=== PATIENT | male | born 1965 | race Caucasian/White ===

== ENCOUNTER 2017-06-12 04:42 | Emergency (ER) | payer OTHER ==
--- NOTE | 2017-06-12 07:19 | EDM.PDOC ---
ED HPI GENERAL MEDICAL PROBLEM - General Chief Complaint: Head Injury Stated Complaint: FALL AND HIT HIS HEAD Time Seen by Provider: 06/12/17 04:42 Source of Information: Reports: Patient History Limitations: Reports: No Limitations - History of Present Illness INITIAL COMMENTS - FREE TEXT/NARRATIVE: c/o syncope pt want to bathroom in middle of night, voided, turned to walk back to bed and fell, struck head on cabinet, has pain in neck and head heard him fall and called his name, he did not respond, she came to his side and he became alert in 30 seconds no prodrome, no lighthead, no dizzy does drink 2 cups of coffee daily and about 60 oz of H2O 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 Denies: Fever, Chills, Malaise, Weakness , Fatigue, Night Sweats HEENT: Reports: No Symptoms Respiratory: Reports: No Symptoms Cardiovascular: Reports: No Symptoms Endocrine: Reports: No Symptoms GI/Abdominal: Reports: No Symptoms : Reports: No Symptoms Musculoskeletal: Reports: No Symptoms Skin: Reports: No Symptoms Neurological: Reports: Headache, Syncope. Denies: Seizure, Tremors, Difficulty Walking, Weakness, Change in Speech, Gait Disturbance Psychiatric: Reports: No Symptoms Hematologic/Lymphatic: Reports: No Symptoms Immunologic: Reports: No Symptoms ED EXAM, HEAD INJURY - Physical Exam Exam: See Below Exam Limited By: No Limitations General Appearance: Alert, WD/WN, No Apparent Distress Head: Other (R occiput) Course - Vital Signs Last Recorded V/S: Last Vital Signs Temp 36.7 C 06/12/17 04:50 Pulse 71 06/12/17 04:50 Resp 16 06/12/17 04:50 BP 130/85 06/12/17 04:50 Pulse Ox 100 06/12/17 04:50 - Orders/Labs/Meds Orders: Active Orders 24 hr Category Date Time Status EKG Documentation Completion [RC] ASDIRECTED Care 06/12/17 05:22 Active Cervical Spine wo Cont [CT] Stat Exams 06/12/17 05:15 Taken Head wo Cont [CT] Stat Exams 06/12/17 05:15 Taken EKG 12 Lead [EK] Routine Ther 06/12/17 05:22 Ordered Labs: Laboratory Tests 06/12/17 06/12/17 06/12/17 Range/Units 05:30 05:40 05:40 WBC 5.0 (4.5-12.0) X10-3/uL RBC 5.26 (4.30-5.75) x10(6)uL Hgb 16.1 H (11.5-15.5) g/dL Hct 47.3 (30.0-51.3) % MCV 90.0 (80-96) fL MCH 30.6 (27.7-33.6) pg MCHC 34.0 (32.2-35.4) g/dL RDW 11.8 (11.5-15.5) % Plt Count 156 (125-369) X10(3)uL MPV 11.1 H (7.4-10.4) fL Neut % (Auto) 71.4 (46-82) % Lymph % (Auto) 17.8 (13-37) % [place] % (Auto) 8.6 (4-12) % Eos % (Auto) 2 (1.0-5.0) % Baso % (Auto) 0 (0-2) % Neut # (Auto) 3.6 (1.6-8.3) # Lymph # (Auto) 0.9 (0.6-5.0) # [place] # (Auto) 0.4 (0.0-1.3) # Eos # (Auto) 0.1 (0.0-0.8) # Baso # (Auto) 0.0 (0.0-0.2) # Sodium 138 (135-145) mmol/L Potassium 4.2 (3.5-5.3) mmol/L Chloride 102 (100-110) mmol/L Carbon Dioxide 27 (23-29) mmol/L BUN 18 (5-20) mg/dL Creatinine 1.1 (0.6-1.3) mg/dL Est Cr Clr Drug Dosing 91.33 mL/min Estimated GFR (MDRD) > 60 (>60) BUN/Creatinine Ratio 16.4 (9-20) Glucose 102 (80-116) mg/dL Calcium 9.1 (8.6-10.2) mg/dL Magnesium 1.9 (1.8-2.5) mg/dL Total Bilirubin 1.1 (0.1-1.3) mg/dL AST 23 (5-27) IU/L ALT 26 (14-26) IU/L Alkaline Phosphatase 48 L (56-112) IU/L Creatine Kinase (60-160) IU/L Troponin I (0.02-0.06) NG/ML C-Reactive Protein < 0.5 (0.0-1.0) mg/dL Total Protein 6.9 (6.0-8.0) g/dL Albumin 4.5 (3.5-5.2) g/dL Globulin 2.4 g/dL Albumin/Globulin Ratio 1.9 Urine Color Yellow (YELLOW) Urine Appearance Clear (CLEAR) Urine pH 7.0 H (5.0-6.5) Ur Specific [place] 1.010 (1.010-1.025) Urine Protein Negative (NEGATIVE) mg/dL Urine Glucose (UA) Normal (NEGATIVE) mg/dL Urine Ketones Negative (NEGATIVE) mg/dL Urine Occult Blood Negative (NEGATIVE) Urine Nitrite Negative (NEGATIVE) Urine Bilirubin Negative (NEGATIVE) Urine Urobilinogen Normal (NEGATIVE) mg/dL Ur Leukocyte Esterase Negative (NEGATIVE) Urine RBC 0-5 (0) Urine WBC 0-5 (0) Ur Squamous Epith Cells Occasional (NS,R,O) Urine Bacteria Rare H (NS) 06/12/17 06/12/17 Range/Units 05:40 05:40 WBC (4.5-12.0) X10-3/uL RBC (4.30-5.75) x10(6)uL Hgb (11.5-15.5) g/dL Hct (30.0-51.3) % MCV (80-96) fL MCH (27.7-33.6) pg MCHC (32.2-35.4) g/dL RDW (11.5-15.5) % Plt Count (125-369) X10(3)uL MPV (7.4-10.4) fL Neut % (Auto) (46-82) % Lymph % (Auto) (13-37) % [place] % (Auto) (4-12) % Eos % (Auto) (1.0-5.0) % Baso % (Auto) (0-2) % Neut # (Auto) (1.6-8.3) # Lymph # (Auto) (0.6-5.0) # [place] # (Auto) (0.0-1.3) # Eos # (Auto) (0.0-0.8) # Baso # (Auto) (0.0-0.2) # Sodium (135-145) mmol/L Potassium (3.5-5.3) mmol/L Chloride (100-110) mmol/L Carbon Dioxide (23-29) mmol/L BUN (5-20) mg/dL Creatinine (0.6-1.3) mg/dL Est Cr Clr Drug Dosing mL/min Estimated GFR (MDRD) (>60) BUN/Creatinine Ratio (9-20) Glucose (80-116) mg/dL Calcium (8.6-10.2) mg/dL Magnesium (1.8-2.5) mg/dL Total Bilirubin (0.1-1.3) mg/dL AST (5-27) IU/L ALT (14-26) IU/L Alkaline Phosphatase (56-112) IU/L Creatine Kinase 117 (60-160) IU/L Troponin I < 0.01 L (0.02-0.06) NG/ML C-Reactive Protein (0.0-1.0) mg/dL Total Protein (6.0-8.0) g/dL Albumin (3.5-5.2) g/dL Globulin g/dL Albumin/Globulin Ratio Urine Color (YELLOW) Urine Appearance (CLEAR) Urine pH (5.0-6.5) Ur Specific [place] (1.010-1.025) Urine Protein (NEGATIVE) mg/dL Urine Glucose (UA) (NEGATIVE) mg/dL Urine Ketones (NEGATIVE) mg/dL Urine Occult Blood (NEGATIVE) Urine Nitrite (NEGATIVE) Urine Bilirubin (NEGATIVE) Urine Urobilinogen (NEGATIVE) mg/dL Ur Leukocyte Esterase (NEGATIVE) Urine RBC (0) Urine WBC (0) Ur Squamous Epith Cells (NS,R,O) Urine Bacteria (NS) - Re-Assessments/Exams Free Text/Narrative Re-Assessment/Exam: 06/12/17 07:14 labs and CTs reviewed with pt and , hgb slightly elevated altho no clear evidence of dehydration, does have incidental thyroid nodule which will need to be further evaluated, pt and aware Departure - Departure Time of Disposition: 07:31 Disposition: Home, Self-Care 01 Condition: Good Clinical Impression: Vasovagal syncope, Thyroid nodule, Head contusion, Contusion of right shoulder , Neck strain - Discharge Information Instructions: Head Injury, Adult, [id number], Vasovagal Syncope, Adult Referrals: PCP,None [Primary Care Provider] - Forms: ED Department Discharge Additional Instructions: No work today. Rest today. No strenuous activities the next 3 days. Use ice for 10-15 minutes 4 times today. Take ibuprofen 200 mg 3 tabs 4 times today and tomorrow. May also take acetaminophen 500 mg 2 tabs with the ibuprofen. Maintain fluids, typically 1.5 liters per day for indoor, nonstrenous activity. See your doctor in 3 days. Discuss further evaluation of your thyroid nodule with your doctor. Return to ED if you are feeling worse. Take care not to stand or move too quickly at night, particularly when in the bathroom. While it is unusual to have bleeding in the brain that occurs later time, it occasional can happen. Return to ED if you have a severe headache that does not responds to pain meds, if you have persistent nausea and vomiting of several hours duration or if you have increased difficulty with your coordination. Call your Physician or Return to Emergency Department if: * Your condition worsens in any way. * You have pain that is not controlled with medications. - My Orders Last 24 Hours: My Active Orders 06/12/17 05:15 Cervical Spine wo Cont [CT] Stat Head wo Cont [CT] Stat 06/12/17 05:22 EKG Documentation Completion [RC] ASDIRECTED EKG 12 Lead [EK] Routine - Assessment/Plan Last 24 Hours: My Active Orders 06/12/17 05:15 Cervical Spine wo Cont [CT] Stat Head wo Cont [CT] Stat 06/12/17 05:22 EKG Documentation Completion [RC] ASDIRECTED EKG 12 Lead [EK] Routine
== END 2017-06-12 07:47 | disposition home or self-care (01) ==
LOC: FB.ED 04:42
DX: R55 Syncope and collapse (principal); S16.1XXA Strain of muscle, fascia and tendon at neck level, initial encounter; S00.93XA Contusion of unspecified part of head, initial encounter; S40.011A Contusion of right shoulder, initial encounter; E04.1 Nontoxic single thyroid nodule; W01.198A Fall on same level from slipping, tripping and stumbling with subsequent striking against other object, initial encounter
CPT/HCPCS: 36415; 51701; 70450; 72125; 80053; 81001; 82550; 83735; 84443; 84484; 85025; 86140; 93005; 99285